=== PATIENT | female | born 1955 | race Caucasian/White ===

== ENCOUNTER 2022-03-17 10:01 | Inpatient (IN) | payer MEDICARE, OTHER ==
[~2022-03-17] VITALS: Ht 167.6 cm; Wt 62.1 kg
[~2022-03-17 10:01] MED LIST: ALDACTONE 25MG25 M1 PO; NORVASC 5MG5 MG/TAB PO; PRINIVIL40 MG PO; PROTONIX 40MG T40 MG PO; ZOFRAN ODT4 MG PO
[2022-03-17 10:59] LABS: BASO % 0.2 % (0.0-2.0); EOS # 0.1 K/mm3 (0.0-0.7); GRAN # 2.7 K/mm3 (1.4-6.5); GRAN % 62.8 % (42.2-75.2); HEMATOCRIT 39.3 % (37.0-47.0); HEMOGLOBIN 14.2 g/dl (12.5-16.0); LYMPH # 1.1 K/mm3 (1.2-3.4); LYMPH % 24.4 % (20.0-51.0); MEAN CELL VOLUME 82 fl (80.0-100.0); MEAN CORPUSCULAR HEMOGLOBIN 30 pg (27-31); MEAN CORPUSCULAR HGB CONC 36 g/dl (33.0-37.0); MEAN PLATELET VOLUME 10.3 fl (7.4-10.4); MONO # 0.4 K/mm3 (0.1-0.6); MONO % 9.4 % (1.7-9.3); PLATELET COUNT 227 K/mm3 (130-400); RED BLOOD COUNT 4.78 M/mm3 (4.10-5.30); REDCELL DISTRIBUTION WIDTH-CV 12.2 % (11.5-14.5)
[2022-03-17 11:13] LABS: ALBUMIN 4.1 gm/dL (3.4-4.8); ANION GAP 15 mmol/L (7-16); BLOOD UREA NITROGEN 7 mg/dL (10-20); CALCIUM 10.1 mg/dL (8.4-10.2); CARBON DIOXIDE 21 mmol/L (23-31); CHLORIDE 90 mmol/L (98-107); CREATININE, serum 0.81 mg/dL (0.57-1.11); GLUCOSE 84 mg/dL (70-99); PHOSPHOROUS 4.5 mg/dL (2.3-4.7); SODIUM 126 mmol/L (136-145)
[2022-03-17 11:34] LABS: TROPONIN-I < 0.010 ng/mL (0.00-0.033); TSH w REFLEX < 0.003 uIU/mL (0.350-4.940)
[2022-03-17 13:20] LABS: URIC ACID 6.7 mg/dL (2.6-6.0)
[2022-03-17 15:56] LABS: CALCIUM 9.4 mg/dL (8.4-10.2); CREATININE, serum 0.74 mg/dL (0.57-1.11)
[2022-03-17 16:00] VITALS: BP 113/65; PULSE 77
--- NOTE | 2022-03-17 16:25 | NUR ---
ADMIT FROM ER WITH C/O DIZZY THIS AM. STATES SHE USE TO HAVE HIGH BLOOD PRESSURE AND WAS OVER WEIGHT SINCE LOSING WT, HAS BEEN MONITORING BP AND NOT TAKING BP MEDS. BP 80/50 USUALLY. FELT OFF BALANCE AND CAME IN. DENIES FALLS TO HIT ANYTHING DID BUMP INTO WALL. HX AND ASSESSSMENT . WILL DO MED REC WHEN SPOUSE BRING CURRENT LITZY.
[2022-03-17] MEDS ORDERED: FLONASE NASAL S16 GM NS (17:57)
[2022-03-17] MEDS ORDERED: PROAIR HFA0.09 MG/AC IH (17:58)
[2022-03-17] MEDS ORDERED: FOSAMAX 70MG TA70 MG PO (17:59)
[2022-03-17] MEDS ORDERED: CYTOMEL 2525 MCG/TAB PO (18:00)
[2022-03-17] MEDS ORDERED: ALDACTONE 25MG25 M1 PO (18:00)
[2022-03-17] MEDS ORDERED: DESYREL DIVIDO300 MG PO (18:00)
[2022-03-17] MEDS ORDERED: SYNTHROID0.125 MG/T PO (18:01)
[2022-03-17] MEDS ORDERED: ULTRAM 50MG TAB50 MG PO (18:01)
[2022-03-17] MEDS ORDERED: NEURONTIN300 MG/CAP PO (18:02)
[2022-03-17] MEDS ORDERED: COREG12.5 MG PO (18:02)
[2022-03-17] MEDS ORDERED: PROTONIX 40MG T40 MG PO (18:02)
[2022-03-17] MEDS ORDERED: RESTORIL30 MG (18:03)
[2022-03-17] MEDS ORDERED: XYZAL5 MG PO (18:13)
--- NOTE | 2022-03-17 20:15 | NUR ---
Initial shift assessment done- denies dizziness, VSS, IV fluids of NS at 60cc/hr to L/FA, Tele on-SR, Pt understands we need a urine specimen tonight- states she will call if she needs any assistance tonight.
[2022-03-17 20:30] VITALS: BP 137/77; PULSE 80; TEMP 98.3
[2022-03-17 22:41] LABS: OSMOLALITY-URINE random 155 Osm/kg (50-1200)
[2022-03-18] VITALS: BP 111/66; PULSE 79; TEMP 98
[2022-03-18 04:37] VITALS: BP 119/47; PULSE 69; TEMP 98.1
--- NOTE | 2022-03-18 05:51 | NUR ---
Quiet night- no requests, no dizziness, VSS, B/P stable, o2 sats 98% on RA
[2022-03-18 07:04] LABS: BASO % 0.2 % (0.0-2.0); EOS # 0.1 K/mm3 (0.0-0.7); GRAN # 2.7 K/mm3 (1.4-6.5); GRAN % 59.1 % (42.2-75.2); HEMOGLOBIN 12.7 g/dl (12.5-16.0); LYMPH # 1.3 K/mm3 (1.2-3.4); LYMPH % 28.4 % (20.0-51.0); MEAN CELL VOLUME 83 fl (80.0-100.0); MEAN CORPUSCULAR HEMOGLOBIN 29 pg (27-31); MEAN CORPUSCULAR HGB CONC 35 g/dl (33.0-37.0); MEAN PLATELET VOLUME 10.5 fl (7.4-10.4); MONO # 0.4 K/mm3 (0.1-0.6); MONO % 9.1 % (1.7-9.3); PLATELET COUNT 240 K/mm3 (130-400); RED BLOOD COUNT 4.33 M/mm3 (4.10-5.30); REDCELL DISTRIBUTION WIDTH-CV 12.3 % (11.5-14.5)
[2022-03-18 07:19] LABS: HEMATOCRIT 35.9 % (37.0-47.0)
[2022-03-18 07:26] LABS: CALCIUM 9.5 mg/dL (8.4-10.2); CREATININE, serum 0.73 mg/dL (0.57-1.11); POTASSIUM 4.2 mmol/L (3.5-4.5)
--- NOTE | 2022-03-18 07:39 | NUR ---
ALERT AND OX4. DENIES SOA, CHEST PAIN OR DIZZY. STATES FEELING BETTER TODAY. NO HOME MEDS OTHER THAN GABPENTIN RESTARTED, MED LIST UP TO DATE WILL INQUIRE WITH DOCTORS. NEURO INTACT. UP INDENPENT IN ROOM. RA. CALL LIGHT WITH REACH. NEEDS MET.
[2022-03-18 07:40] LABS: TSH w REFLEX 0.003 uIU/mL (0.350-4.940)
[2022-03-18 07:59] VITALS: BP 125/66; PULSE 72; TEMP 97.8
--- NOTE | 2022-03-18 08:53 | NUR ---
REPORT OFF TO SARA COOPER.
[2022-03-18] MEDS ORDERED: SYNTHROID0.1 MG/TAB PO (09:42)
[2022-03-18 11:01] VITALS: BP 123/69; PULSE 75; TEMP 98
--- NOTE | 2022-03-18 11:27 | NUR ---
Discharge paperwork reviewed with the patient and . Patient removed her own IV. Patient ambulated independently with her to the patient entrance. No further needs expressed.
--- NOTE | 2022-03-18 13:17 | NUR ---
Headlight Assembler met with patient to discuss discharge planning. Patient lives in [place] with her , Richard Bruno" (ph#[phone]) [address] sees Dr. Padilla in [place] for primary care. Patient obtains medications from [facility] and does not use any DME. Patient is independent with ADLS and stated she is looking forward to going home today. Patient is independent with ADLS. Patient does not have Advance Directives but is interested in DPOA-HC. SW provided. Discharge Plan: Home
--- NOTE | 2022-03-18 15:06 | NUR ---
Kaylin: Restoration Situation: Channel Director stopped by room on rounds Background: PT was content and ready to be discharged Assessment: Pt appreciated the visit Recommendation: Channel Director will follow up as needed
== END 2022-03-18 11:27 | disposition home or self-care (01) | DRG 315 ==
LOC: COL.ER 10:01 → MEDICAL 13:44
PROVIDERS: Emergency Medicine; Physician Assistant; ADMIT Student in an Organized Health Care Education/Training Program
DX: I95.9 Hypotension, unspecified (principal); E87.1 Hypo-osmolality and hyponatremia; E11.9 Type 2 diabetes mellitus without complications; G47.30 Sleep apnea, unspecified; E03.9 Hypothyroidism, unspecified; I10 Essential (primary) hypertension; G43.909 Migraine, unspecified, not intractable, without status migrainosus; E05.90 Thyrotoxicosis, unspecified without thyrotoxic crisis or storm; K21.9 Gastro-esophageal reflux disease without esophagitis; G47.00 Insomnia, unspecified; E87.8 Other disorders of electrolyte and fluid balance, not elsewhere classified; Z79.84 Long term (current) use of oral hypoglycemic drugs; Z88.5 Allergy status to narcotic agent; Z90.710 Acquired absence of both cervix and uterus; Z90.49 Acquired absence of other specified parts of digestive tract
CPT/HCPCS: J7030

== ENCOUNTER 2024-05-29 09:33 | Inpatient (IN) | payer MEDICARE, OTHER ==
[2024-05-29] VITALS (172 sets, daily range): BP systolic 112–154; BP diastolic 54–80; PULSE 87–105; TEMP 97.9–98.9; O2SAT 72–100
[~2024-05-29] VITALS: Ht 162.6 cm; Wt 62.7 kg
[~2024-05-29 09:33] MED LIST changes: +COREG12.5 MG PO; +CYTOMEL 2525 MCG/TAB PO; +DESYREL 100MG100 MG PO; +FLONASE NASAL S16 GM NS; +FOSAMAX 70MG TA70 MG PO; +NEURONTIN300 MG/CAP PO; +PROAIR HFA0.09 MG/AC IH; +RESTORIL30 MG PO; +SYNTHROID0.1 MG/TAB PO; +SYNTHROID0.125 MG/T PO; +ULTRAM 50MG TAB50 MG PO; +XYZAL5 MG PO
[2024-05-29] MEDS ORDERED: NS 1,000 ML IV ONE (10:30)
[2024-05-29] MEDS ORDERED: Ondansetron 4 MG/2 ML VIAL IV ONE (10:30)
[2024-05-29 11:19] LABS: ALBUMIN 2.9 g/dL (3.4-4.8); BILIRUBIN,TOTAL 0.4 mg/dL (0.2-1.2); CREATININE, serum 0.62 mg/dL (0.57-1.11); POTASSIUM 3.2 mEq/L (3.5-4.5); TOTAL PROTEIN 4.8 g/dl (6.2-8.1)
[2024-05-29] MEDS ORDERED: Polyethylene Glycol 3350 17 GM PDS PO PRN (11:45)
[2024-05-29] MEDS ORDERED: Ondansetron 4 MG/2 ML VIAL IV PRN (11:45)
[2024-05-29] MEDS ORDERED: Docusate Sodium 100 MG CAP PO PRN (11:45)
[2024-05-29] MEDS ORDERED: NS 1,000 ML IV SCH (11:45)
[2024-05-29] MEDS ORDERED: Acetaminophen 325 MG TAB PO PRN (11:45)
[2024-05-29 11:59] LABS: GRAN # 5.4 K/mm3 (1.4-6.5); GRAN % 79.8 % (42.2-75.2); LYMPH # 1.1 K/mm3 (1.2-3.4); LYMPH % 15.8 % (20.0-51.0); MEAN CELL VOLUME 82 fl (80.0-100.0); MEAN CORPUSCULAR HGB CONC 38 g/dl (33.0-37.0); MONO # 0.3 K/mm3 (0.1-0.6); MONO % 3.7 % (1.7-9.3); PLATELET COUNT 195 K/mm3 (130-400); RED BLOOD COUNT 2.25 M/mm3 (4.10-5.30); REDCELL DISTRIBUTION WIDTH-CV 11.9 % (11.5-14.5)
[2024-05-29 12:04] LABS: HEMATOCRIT 18.4 % (37.0-47.0); HEMOGLOBIN 6.9 g/dl (12.5-16.0); MEAN CORPUSCULAR HEMOGLOBIN 31 pg (27-31)
[2024-05-29] MEDS ORDERED: ULTRAM 50MG TAB50 MG PO (12:25)
[2024-05-29] MEDS ORDERED: REQUIP 0.5MG0.5 MG PO (12:25)
[2024-05-29] MEDS ORDERED: Potassium Bicarbonate/Citrate 20 MEQ Effervescent TAB PO SCH (13:00)
[2024-05-29] MEDS ORDERED: *Potassium Replacement Protocol MC SCH (13:00)
[2024-05-29] MEDS ORDERED: Temazepam 15 MG CAP PO PRN (13:00)
[2024-05-29] MEDS ORDERED: Albuterol 0.083% Neb Soln 2.5 MG/3 ML UD IH PRN (13:00)
[2024-05-29 13:49] LABS: COLLECTION METHOD CLEAN CATCH
[2024-05-29 13:53] LABS: URINE APPEARANCE CLEAR (CLEAR/HAZY); URINE BLOOD NEGATIVE (NEGATIVE); URINE COLOR YELLOW (YELLOW); URINE GLUCOSE NEGATIVE (NEGATIVE); URINE KETONE 1+ (NEGATIVE); URINE NITRATE NEGATIVE (NEGATIVE); URINE PROTEIN(semi-quant) NEGATIVE (NEGATIVE); URINE UROBILINOGEN 0.2 E.U/dL (0.2-1.0)
[2024-05-29 14:06] LABS: MAGNESIUM 1.5 mg/dL (1.6-2.6); PHOSPHOROUS 2.4 mg/dL (2.3-4.7)
[2024-05-29] MEDS ORDERED: Gabapentin 300 MG CAP PO SCH (14:30)
[2024-05-29] MEDS ORDERED: rOPINIRole 0.5 MG TAB PO SCH (15:19)
[2024-05-29 15:20] LABS: CALCIUM 7.3 mg/dL (8.4-10.2); CREATININE, serum 0.57 mg/dL (0.57-1.11)
[2024-05-29 15:29] LABS: HEMOGLOBIN 5.4 g/dl (12.5-16.0)
[2024-05-29 15:31] LABS: HEMATOCRIT 14.2 % (37.0-47.0)
[2024-05-29 17:54] LABS: CALCIUM 7.3 mg/dL (8.4-10.2); CREATININE, serum 0.6 mg/dL (0.57-1.11); POTASSIUM 4.2 mEq/L (3.5-4.5)
--- NOTE | 2024-05-29 18:57 | NUR ---
1245 PT ADMITTED TO BED 3 FROM ED. PT ABLE TO STAND AND PIVOT TRANSFER FROM ER COT TO BED. VSS UPON ARRIVAL, PT ON ROOM AIR. FLUIDS STARTED ORDERED TO R WRIST PERIPHERAL IV. PT ALERT AND ORIENTED, PT DENIES PAIN, N/V. PT UNABLE TO VOID, WAGNER INSERTED PER STERILE PROCEDURE ORDERED. PT TOLERATED WELL, CLEAR YELLOW URINE RETURNED, UA SENT TO LAB. PT INSTRUCTED TO USE CALL LIGHT FOR NEEDS AND TO NOT ATTEMPT TO GET OUT OF BED ALONE, BED ALARM IN PLACE FOR PT SAFETY.
[2024-05-29 19:19] LABS: HEMATOCRIT 19.8 % (37.0-47.0); HEMOGLOBIN 7.4 g/dl (12.5-16.0)
--- NOTE | 2024-05-29 19:22 | NUR ---
PATIENT LAYING IN BED, ALERT AND ORIENTED. PICC TO LEFT UPPER ARM, PERIPHERAL IV TO RIGHT WRIST. WAGNER CATHETER IN PLACE AND DRAINING PROPERLY. NO ACUTE EVENTS.
[2024-05-29 21:28] LABS: CALCIUM 7.5 mg/dL (8.4-10.2); CREATININE, serum 0.55 mg/dL (0.57-1.11); POTASSIUM 3.9 mEq/L (3.5-4.5)
[2024-05-30] VITALS (90 sets, daily range): BP systolic 94–129; BP diastolic 59–90; PULSE 69–93; TEMP 97.9–98.3; O2SAT 91–100
[2024-05-30 01:34] LABS: CALCIUM 7.3 mg/dL (8.4-10.2); CREATININE, serum 0.5 mg/dL (0.57-1.11); POTASSIUM 3.5 mEq/L (3.5-4.5)
[2024-05-30 05:29] LABS: EOS % 0.3 % (0.0-4.0); GRAN # 2.3 K/mm3 (1.4-6.5); GRAN % 63.9 % (42.2-75.2); LYMPH % 28.2 % (20.0-51.0); MEAN CELL VOLUME 86 fl (80.0-100.0); MEAN CORPUSCULAR HGB CONC 37 g/dl (33.0-37.0); MEAN PLATELET VOLUME 10.7 fl (7.4-10.4); MONO # 0.3 K/mm3 (0.1-0.6); PLATELET COUNT 153 K/mm3 (130-400)
[2024-05-30 05:35] LABS: MEAN CORPUSCULAR HEMOGLOBIN 32 pg (27-31)
[2024-05-30 05:37] LABS: HEMATOCRIT 17.1 % (37.0-47.0); HEMOGLOBIN 6.4 g/dl (12.5-16.0)
[2024-05-30 05:46] LABS: CALCIUM 7.4 mg/dL (8.4-10.2); CREATININE, serum 0.54 mg/dL (0.57-1.11); POTASSIUM 3.5 mEq/L (3.5-4.5)
[2024-05-30 06:08] LABS: THYROID STIMULATING HORMONE 4.808 uIU/mL (0.350-4.940)
[2024-05-30] MEDS ORDERED: Potassium Chloride 100 ML IV SCH (06:15)
--- NOTE | 2024-05-30 07:00 | NUR ---
Report received from SARA Foote. Pt had no events overnight. HGB 6.4 this AM and 1 unit of blood ordered; not yet ready. PICC to left upper arm with NS and potassium infusing. Pt offers no complaints at this time. Call light in reach.
[2024-05-30] MEDS ORDERED: Magnesium Sulfate 2 GM/50 ML IV SOLN IV SCH (09:00)
[2024-05-30] MEDS ORDERED: Pantoprazole 40 MG in NS 10 ML IV SCH (09:00)
[2024-05-30] MEDS ORDERED: Cetirizine 10 MG TAB PO SCH (09:00)
[2024-05-30] MEDS ORDERED: Levocetirizine 5 MG **** subs to Cetirizine 10 MG PO SCH (09:00)
[2024-05-30 09:36] LABS: CALCIUM 7.4 mg/dL (8.4-10.2); POTASSIUM 4.6 mEq/L (3.5-4.5)
[2024-05-30 10:02] LABS: CREATININE, serum 0.53 mg/dL (0.57-1.11)
--- NOTE | 2024-05-30 11:01 | NUR ---
footwear factory worker notes pt is in isolation for COVID-19. SW attempted to call her room with no response. SW called pt's , Richard [phone] to discuss discharge planning. He reports they live together in [place]. He sees Dr. Padilla out of [place] for PCP needs. Pt obtains medications from [facility] with no difficulties. verified insurance as Medicare A/B and for Life. Pt is independent with ADLS and uses a CPAP and cane for DME. states pt does not have a DPOA-HC. SW discussed PT/OT will work with her and make reccomendations, when able if she needs Home Health or rehab. He verbalized understanding and reports two of their daughter's live nearby and one is a [employer] ATTENDANT who can assist. PT/OT Pending Discharge Plan: home likely
[2024-05-30 13:50] LABS: CALCIUM 7.4 mg/dL (8.4-10.2); CREATININE, serum 0.53 mg/dL (0.57-1.11); POTASSIUM 4.6 mEq/L (3.5-4.5)
[2024-05-30 14:12] LABS: HEMATOCRIT 22.1 % (37.0-47.0)
[2024-05-30] MEDS ORDERED: DESMOPRESSIN IV ONE (14:45)
[2024-05-30] MEDS ORDERED: SODIUM CHLORIDE IV ONE (14:45)
[2024-05-30 17:23] LABS: ANION GAP 6 mmol/L (7-16); BLOOD UREA NITROGEN < 5 mg/dL (10-20); CALCIUM 6.7 mg/dL (8.4-10.2); CHLORIDE 102 mEq/L (98-107); CREATININE, serum 0.56 mg/dL (0.57-1.11); GLUCOSE 187 mg/dL (70-99); POTASSIUM 3.6 mEq/L (3.5-4.5); SODIUM 125 mEq/L (136-145)
--- NOTE | 2024-05-30 19:49 | NUR ---
Received report from SARA White. Pt was alert and sitting up in recliner with at bedside. Vitals are stable at this time. Chu in place with no kinks in tubing. IVF's running at this time. Pt is now is bed with bed in low position and call light within reach. Will continue with pt care.
[2024-05-30 21:50] LABS: CALCIUM 7.7 mg/dL (8.4-10.2); CREATININE, serum 0.53 mg/dL (0.57-1.11); POTASSIUM 3.5 mEq/L (3.5-4.5)
[2024-05-31] VITALS (20 sets, daily range): BP systolic 106–149; BP diastolic 57–95; PULSE 85–92; TEMP 97.8–98.3; O2SAT 96–100
[2024-05-31 01:26] LABS: CALCIUM 7.6 mg/dL (8.4-10.2); CREATININE, serum 0.52 mg/dL (0.57-1.11); POTASSIUM 3.6 mEq/L (3.5-4.5)
[2024-05-31 05:11] LABS: EOS % 0.2 % (0.0-4.0); GRAN # 2.9 K/mm3 (1.4-6.5); GRAN % 62.2 % (42.2-75.2); LYMPH # 1.3 K/mm3 (1.2-3.4); LYMPH % 28.9 % (20.0-51.0); MEAN CELL VOLUME 87 fl (80.0-100.0); MEAN CORPUSCULAR HGB CONC 36 g/dl (33.0-37.0); MEAN PLATELET VOLUME 10.4 fl (7.4-10.4); MONO # 0.4 K/mm3 (0.1-0.6); PLATELET COUNT 151 K/mm3 (130-400); REDCELL DISTRIBUTION WIDTH-CV 14.4 % (11.5-14.5)
[2024-05-31 05:16] LABS: HEMOGLOBIN 7.2 g/dl (12.5-16.0); MEAN CORPUSCULAR HEMOGLOBIN 31 pg (27-31)
[2024-05-31 05:28] LABS: CALCIUM 7.5 mg/dL (8.4-10.2); CREATININE, serum 0.54 mg/dL (0.57-1.11); POTASSIUM 3.7 mEq/L (3.5-4.5)
[2024-05-31] MEDS ORDERED: Potassium Chloride 100 ML IV SCH (05:45)
--- NOTE | 2024-05-31 06:14 | NUR ---
Pt had an uneventful night. Vitals were stable throughout the night. Pt on IVF's and is currently getting potassium replaced per protocol. Chu in place with no kinks in tubing. Pt had adequate urine output. Pt is currently in recliner with the call light within reach. Will give report to day shift nurse.
--- NOTE | 2024-05-31 09:22 | NUR ---
Patient was in recliner resting, VSS, on RA, alert and oriented to situation/person/place. She has had exaggerated urine output. Since 0500 to 0800, she had 1000 ml out of clear yellow urine. Afebrile, able to ambulate to bed from chair without assistance. No signs of IV infiltration, NS infusing and young draining without complications. Will continue to monitor for significant changes. Recheck of Hemogloblin at noon, then we will make a decision on whether to infuse additional unit of PRBC.
[2024-05-31 09:31] LABS: ANION GAP 6 mmol/L (7-16); CALCIUM 7.5 mg/dL (8.4-10.2); CHLORIDE 98 mEq/L (98-107); CREATININE, serum 0.55 mg/dL (0.57-1.11); GLUCOSE 115 mg/dL (70-99); POTASSIUM 4.1 mEq/L (3.5-4.5); SODIUM 123 mEq/L (136-145)
[2024-05-31 09:34] LABS: BLOOD UREA NITROGEN < 5 mg/dL (10-20)
[2024-05-31] MEDS ORDERED: DESMOPRESSIN 0.01% NS SCH (11:02)
[2024-05-31 12:22] LABS: HEMATOCRIT 22.9 % (37.0-47.0); HEMOGLOBIN 8.1 g/dl (12.5-16.0)
--- NOTE | 2024-05-31 13:34 | NUR ---
composite worker attended interdisciplinary clinical rounding with Dr. Traore. Patient may be able to return home tomorrow. SW expressed PT and OT were recommending home health services. Due to patient being in COVID isolation, Dr. Traore provided the Medicare.gov list of options for home health and expressed the social professionals would be calling her to discuss this. SW attempted to contact patient's phone but it was not going through. SW met with patient in room and explained home health services and explained she would need to choose an agency and social professionals would send the referral. SW left her phone number with patient to follow up with on choice of home health agency. Discharge plan: Home with Home Health - pending patient's choice of home health agency
--- NOTE | 2024-05-31 16:37 | NUR ---
road worker called patient to follow up on options for home health. Patient expressed she reviewed the Medicare.gov and decided she was going to go home and use family support. Patient declined home health services. Discharge plan: Home
--- NOTE | 2024-05-31 19:36 | NUR ---
Received report from SARA Tejeda. Vitals are stable at this time. Pt is alert and sitting up in the recliner with the call light within reach. Chu is in place with no kinks in tubing. IVF's running at this time. Will continue with pt care.
[2024-06-01] VITALS (34 sets, daily range): BP systolic 109–159; BP diastolic 79–99; PULSE 79–96; TEMP 97.8–98.3; O2SAT 85–100
[2024-06-01 05:24] LABS: BASO % 0.2 % (0.0-2.0); EOS # 0.1 K/mm3 (0.0-0.7); EOS % 1.1 % (0.0-4.0); GRAN # 4.6 K/mm3 (1.4-6.5); GRAN % 68.5 % (42.2-75.2); LYMPH # 1.4 K/mm3 (1.2-3.4); LYMPH % 21.5 % (20.0-51.0); MEAN CELL VOLUME 88 fl (80.0-100.0); MEAN CORPUSCULAR HGB CONC 36 g/dl (33.0-37.0); MEAN PLATELET VOLUME 10.3 fl (7.4-10.4); MONO # 0.5 K/mm3 (0.1-0.6); MONO % 8.1 % (1.7-9.3); PLATELET COUNT 206 K/mm3 (130-400); RED BLOOD COUNT 2.67 M/mm3 (4.10-5.30); REDCELL DISTRIBUTION WIDTH-CV 14.4 % (11.5-14.5)
[2024-06-01 05:29] LABS: HEMATOCRIT 23.4 % (37.0-47.0); HEMOGLOBIN 8.5 g/dl (12.5-16.0); MEAN CORPUSCULAR HEMOGLOBIN 32 pg (27-31)
[2024-06-01 05:45] LABS: CREATININE, serum 0.52 mg/dL (0.57-1.11); POTASSIUM 3.3 mEq/L (3.5-4.5)
--- NOTE | 2024-06-01 06:17 | NUR ---
Pt had an uneventful night. Vitals were stable throughout the night. IVF's running at this time. Chu in place with no kinks in tubing. Pt had 4L of urine output and hospitalist was notified and will pass onto day shift nurse. Pt's Na+ and Cl was low in lab and did a redrawal to verifiy and check to make sure if it is accurate. Pt denied pain throughout the night. Pt is currently resting in bed with bed in low position and call light within reach. Will give report to day shift nurse.
[2024-06-01 07:05] LABS: CALCIUM 7.9 mg/dL (8.4-10.2); CREATININE, serum 0.5 mg/dL (0.57-1.11); POTASSIUM 3.3 mEq/L (3.5-4.5)
--- NOTE | 2024-06-01 07:44 | NUR ---
CRITICALS THIS MORNING WITH SODIUM OF 114, DID A REDRAW BMP TO VERIFY FOR THE DRAMATIC DROP AND IT IS 114 FROM THE REDRAW. CHLORIDE IS ALSO AT A CRITICAL LEVEL OF 83. NOTIFIED PHYSICIAN OF CHANGES. WILL GIVE ADDITIONAL DOSE OF DESMOPRESSION. MONITORING FOR SEIZURES OR SIGNIFICANT CHANGES.
[2024-06-01] MEDS ORDERED: DESMOPRESSIN IV ONE (07:45)
[2024-06-01] MEDS ORDERED: Potassium Chloride 100 ML IV SCH ×2 (07:45→19:15)
[2024-06-01] MEDS ORDERED: SODIUM CHLORIDE IV ONE (07:45)
[2024-06-01 11:38] LABS: ANION GAP 9 mmol/L (7-16); CALCIUM 7.7 mg/dL (8.4-10.2); CREATININE, serum 0.54 mg/dL (0.57-1.11); GLUCOSE 121 mg/dL (70-99); POTASSIUM 4.6 mEq/L (3.5-4.5)
[2024-06-01 11:50] LABS: BLOOD UREA NITROGEN < 5 mg/dL (10-20)
[2024-06-01 11:51] LABS: SODIUM 111 mEq/L (136-145)
[2024-06-01 11:52] LABS: CHLORIDE 84 mEq/L (98-107)
[2024-06-01] MEDS ORDERED: Sodium Chloride 3% 500 ML IV SCH ×2 (12:30→13:45)
[2024-06-01] MEDS ORDERED: hydrOXYzine HCl 25 MG TAB PO SCH (13:00)
[2024-06-01] MEDS ORDERED: diazePAM 2 MG TAB PO ONE (14:00)
[2024-06-01 16:27] LABS: ANION GAP 9 mmol/L (7-16); CALCIUM 8.1 mg/dL (8.4-10.2); GLUCOSE 104 mg/dL (70-99); POTASSIUM 3.5 mEq/L (3.5-4.5)
[2024-06-01 16:29] LABS: BLOOD UREA NITROGEN < 5 mg/dL (10-20); SODIUM 110 mEq/L (136-145)
[2024-06-01 16:30] LABS: CHLORIDE 80 mEq/L (98-107)
--- NOTE | 2024-06-01 17:19 | NUR ---
Requested with Dr. Evans, that we a redraw for sodium since there has been a dramatic drop continually. The redraw to be collected from a peripheral vein, not the PICC. I am unsure what would be causing a difference between sticking peripheral and using the PICC, but it is to rule out any discrepicies. Patient continues to be scared and anxious about why her sodium is dropping, what that may mean for her, and what would cause these changes. Educated patient about the medications that we are trying to correct her severe hyponatremia. 3% sodium chloride was started at 30 ml/hr with an increase in BMP to Q2hr and sodium chloride tablets 1000 mg TID. Will continue to look for trends and notify physician as needed.
[2024-06-01 17:30] LABS: TRICYCLIC ANTIDEPRESS URINE NEGATIVE (NEGATIVE)
[2024-06-01 17:34] LABS: ANION GAP 9 mmol/L (7-16); CALCIUM 8.6 mg/dL (8.4-10.2); CREATININE, serum 0.51 mg/dL (0.57-1.11); GLUCOSE 100 mg/dL (70-99); POTASSIUM 3.5 mEq/L (3.5-4.5)
[2024-06-01 17:35] LABS: BLOOD UREA NITROGEN < 5 mg/dL (10-20); CHLORIDE 80 mEq/L (98-107); SODIUM 110 mEq/L (136-145)
[2024-06-01 18:42] LABS: CALCIUM 8.3 mg/dL (8.4-10.2); CREATININE, serum 0.49 mg/dL (0.57-1.11); GLUCOSE 92 mg/dL (70-99)
[2024-06-01 18:50] LABS: ANION GAP 11 mmol/L (7-16); POTASSIUM 3.5 mEq/L (3.5-4.5)
[2024-06-01 18:51] LABS: BLOOD UREA NITROGEN < 5 mg/dL (10-20)
[2024-06-01 18:52] LABS: CHLORIDE 80 mEq/L (98-107); SODIUM 111 mEq/L (136-145)
--- NOTE | 2024-06-01 19:09 | NUR ---
Received report from SARA Tejeda. Vitals are stable at this time. 3% sodium chloride is running at this time. Pt's is at bedside at this time. Pt is currently sitting up in the recliner and is alert. Call light is within reach. Chu is in place with no kinks in tubing.
[2024-06-01] MEDS ORDERED: Sodium Chloride 3% 100 ML IV SCH (19:45)
[2024-06-01 20:21] LABS: ANION GAP 11 mmol/L (7-16); CREATININE, serum 0.55 mg/dL (0.57-1.11); GLUCOSE 182 mg/dL (70-99); POTASSIUM 3.5 mEq/L (3.5-4.5)
[2024-06-01 20:36] LABS: BLOOD UREA NITROGEN < 5 mg/dL (10-20)
[2024-06-01 20:37] LABS: CHLORIDE 82 mEq/L (98-107); SODIUM 111 mEq/L (136-145)
[2024-06-01] MEDS ORDERED: traZODone 100 MG TAB PO SCH (21:00)
[2024-06-01 22:57] LABS: CALCIUM 7.9 mg/dL (8.4-10.2); CREATININE, serum 0.5 mg/dL (0.57-1.11); POTASSIUM 4.7 mEq/L (3.5-4.5)
[2024-06-02] VITALS (222 sets, daily range): BP systolic 99–133; BP diastolic 66–85; PULSE 72–89; TEMP 97.4–98.3; O2SAT 74–100
[2024-06-02 00:44] LABS: CALCIUM 7.6 mg/dL (8.4-10.2); CREATININE, serum 0.47 mg/dL (0.57-1.11); POTASSIUM 4.1 mEq/L (3.5-4.5)
[2024-06-02 02:28] LABS: CALCIUM 7.8 mg/dL (8.4-10.2); CREATININE, serum 0.47 mg/dL (0.57-1.11); POTASSIUM 3.9 mEq/L (3.5-4.5)
[2024-06-02 04:42] LABS: CALCIUM 7.8 mg/dL (8.4-10.2); CREATININE, serum 0.5 mg/dL (0.57-1.11); POTASSIUM 3.7 mEq/L (3.5-4.5)
[2024-06-02] MEDS ORDERED: Potassium Chloride 100 ML IV SCH (05:15)
--- NOTE | 2024-06-02 06:25 | NUR ---
Pt had an uneventful night. Vitals have been stable throughout the night. Pt denies having pain throughout the night. Pt on 3% sodium chloride drip at this time and replacing potassium per protocol. Chu in place with no kinks in tubing. Pt seemed to sleep most of the night. Pt is currently resting in bed with bed in low position and call light within reach. Will give report to day shift nurse.
[2024-06-02 06:30] LABS: ANION GAP 7 mmol/L (7-16); BLOOD UREA NITROGEN < 5 mg/dL (10-20); CALCIUM 7.8 mg/dL (8.4-10.2); CHLORIDE 90 mEq/L (98-107); CREATININE, serum 0.48 mg/dL (0.57-1.11); GLUCOSE 82 mg/dL (70-99); POTASSIUM 3.6 mEq/L (3.5-4.5)
[2024-06-02 06:31] LABS: SODIUM 117 mEq/L (136-145)
--- NOTE | 2024-06-02 06:36 | NUR ---
Will pass on critical Na+ to day shift nurse.
[2024-06-02 08:58] LABS: ANION GAP 5 mmol/L (7-16); CALCIUM 7.9 mg/dL (8.4-10.2); CHLORIDE 93 mEq/L (98-107); CREATININE, serum 0.53 mg/dL (0.57-1.11); GLUCOSE 84 mg/dL (70-99); POTASSIUM 5.1 mEq/L (3.5-4.5)
[2024-06-02 08:59] LABS: BLOOD UREA NITROGEN < 5 mg/dL (10-20)
[2024-06-02 09:00] LABS: SODIUM 118 mEq/L (136-145)
[2024-06-02 10:26] LABS: ANION GAP 6 mmol/L (7-16); CALCIUM 7.7 mg/dL (8.4-10.2); CHLORIDE 93 mEq/L (98-107); CREATININE, serum 0.53 mg/dL (0.57-1.11); GLUCOSE 90 mg/dL (70-99); POTASSIUM 4.4 mEq/L (3.5-4.5)
[2024-06-02 10:38] LABS: BLOOD UREA NITROGEN < 5 mg/dL (10-20)
[2024-06-02 10:39] LABS: SODIUM 117 mEq/L (136-145)
[2024-06-02 12:28] LABS: ANION GAP 6 mmol/L (7-16); CALCIUM 7.7 mg/dL (8.4-10.2); CHLORIDE 92 mEq/L (98-107); CREATININE, serum 0.52 mg/dL (0.57-1.11); GLUCOSE 96 mg/dL (70-99); POTASSIUM 4.1 mEq/L (3.5-4.5)
[2024-06-02 12:37] LABS: BLOOD UREA NITROGEN < 5 mg/dL (10-20)
[2024-06-02 12:38] LABS: SODIUM 117 mEq/L (136-145)
[2024-06-02 14:24] LABS: ANION GAP 8 mmol/L (7-16); BLOOD UREA NITROGEN < 5 mg/dL (10-20); CALCIUM 7.8 mg/dL (8.4-10.2); CHLORIDE 94 mEq/L (98-107); CREATININE, serum 0.52 mg/dL (0.57-1.11); GLUCOSE 89 mg/dL (70-99); POTASSIUM 4.1 mEq/L (3.5-4.5)
[2024-06-02 14:25] LABS: SODIUM 119 mEq/L (136-145)
[2024-06-02 16:44] LABS: ANION GAP 7 mmol/L (7-16); CALCIUM 7.6 mg/dL (8.4-10.2); CHLORIDE 95 mEq/L (98-107); GLUCOSE 83 mg/dL (70-99); POTASSIUM 4.6 mEq/L (3.5-4.5); SODIUM 121 mEq/L (136-145)
[2024-06-02 16:46] LABS: BLOOD UREA NITROGEN < 5 mg/dL (10-20)
[2024-06-02 18:45] LABS: CALCIUM 7.7 mg/dL (8.4-10.2); CREATININE, serum 0.51 mg/dL (0.57-1.11); POTASSIUM 4.2 mEq/L (3.5-4.5)
--- NOTE | 2024-06-02 19:29 | NUR ---
PATIENT LAYING IN BED, ALERT AND ORIENTED. AT BEDSIDE. PICC LINE TO LEFT UPPER ARM. WAGNER CATHETER IN PLACE AND DRAINING WELL. CALL LIGHT WITHIN REACH. NO ACUTE EVENTS.
[2024-06-02 21:21] LABS: CALCIUM 7.6 mg/dL (8.4-10.2); CREATININE, serum 0.54 mg/dL (0.57-1.11); POTASSIUM 3.7 mEq/L (3.5-4.5)
[2024-06-02 23:20] LABS: CALCIUM 7.7 mg/dL (8.4-10.2); CREATININE, serum 0.53 mg/dL (0.57-1.11)
[2024-06-03] VITALS (21 sets, daily range): BP systolic 105–126; BP diastolic 53–76; PULSE 64–93; TEMP 97.6–98.1; O2SAT 93–100
[2024-06-03 03:08] LABS: CALCIUM 7.8 mg/dL (8.4-10.2); CREATININE, serum 0.54 mg/dL (0.57-1.11); POTASSIUM 3.7 mEq/L (3.5-4.5)
[2024-06-03 03:09] LABS: CALCIUM 7.6 mg/dL (8.4-10.2); CREATININE, serum 0.51 mg/dL (0.57-1.11); POTASSIUM 3.9 mEq/L (3.5-4.5)
[2024-06-03 05:13] LABS: EOS # 0.1 K/mm3 (0.0-0.7); EOS % 1.2 % (0.0-4.0); GRAN # 3.5 K/mm3 (1.4-6.5); GRAN % 71.9 % (42.2-75.2); LYMPH # 0.8 K/mm3 (1.2-3.4); LYMPH % 16.6 % (20.0-51.0); MEAN CELL VOLUME 90 fl (80.0-100.0); MEAN CORPUSCULAR HGB CONC 35 g/dl (33.0-37.0); MEAN PLATELET VOLUME 10.3 fl (7.4-10.4); MONO # 0.5 K/mm3 (0.1-0.6); MONO % 9.5 % (1.7-9.3); PLATELET COUNT 201 K/mm3 (130-400); RED BLOOD COUNT 2.29 M/mm3 (4.10-5.30); REDCELL DISTRIBUTION WIDTH-CV 14.9 % (11.5-14.5)
[2024-06-03 05:23] LABS: HEMATOCRIT 20.5 % (37.0-47.0); HEMOGLOBIN 7.2 g/dl (12.5-16.0); MEAN CORPUSCULAR HEMOGLOBIN 31 pg (27-31)
[2024-06-03 05:36] LABS: CALCIUM 7.8 mg/dL (8.4-10.2); CREATININE, serum 0.52 mg/dL (0.57-1.11)
[2024-06-03 07:21] LABS: CALCIUM 7.8 mg/dL (8.4-10.2); CREATININE, serum 0.53 mg/dL (0.57-1.11); POTASSIUM 4.1 mEq/L (3.5-4.5)
[2024-06-03 08:21] LABS: CALCIUM 7.7 mg/dL (8.4-10.2); CREATININE, serum 0.53 mg/dL (0.57-1.11); POTASSIUM 4.2 mEq/L (3.5-4.5)
[2024-06-03 11:10] LABS: ANION GAP 7 mmol/L (7-16); CALCIUM 7.8 mg/dL (8.4-10.2); CHLORIDE 101 mEq/L (98-107); CREATININE, serum 0.55 mg/dL (0.57-1.11); GLUCOSE 110 mg/dL (70-99); POTASSIUM 3.9 mEq/L (3.5-4.5); SODIUM 127 mEq/L (136-145)
--- NOTE | 2024-06-03 11:14 | NUR ---
PATIENT AWAKE AND ALERT IN BED, EXPRESSES CONCERN ABOUT HER SODIUM LEVELS. THIS NURSE TOLD HER I WOULD KEEP HER UPDATED ON THE Q2 BMPS. PATIENT WAS ALSO CONCERNED ABOUT THE AMOUNT OF BLOOD WE WERE WASTING DURING THE BMPS, EXPLAINED IT WAS NECESSARY D/T POSSIBLE DILUTION ISSUES. SHE UNDERSTOOD AND WAS SATISFIED WITH THIS ANSWER. ASSISTED PATIENT IN ORDERING BREAKFAST. PATIENT HAS BED IN LOW POSITION, CALL LIGHT IN REACH, POSSESSIONS NEAR BY, CONTACT PLUS PRECATIONS STILL BEING FOLLOWED
[2024-06-03 11:18] LABS: BLOOD UREA NITROGEN < 5 mg/dL (10-20)
--- NOTE | 2024-06-03 12:38 | NUR ---
vegetable harvest worker spoke with Carolyn FORBES, and explained patient declined home health. Carolyn expressed patient has improved and at this time would be okay to return home with family support once medically stable for discharge. MARILYN will continue to follow. MARILYN notified Dr. Traore during interdisciplinary clinical rounding that patient declined home health services and would return home with family support once stable.
[2024-06-03 13:10] LABS: CALCIUM 7.9 mg/dL (8.4-10.2); CREATININE, serum 0.55 mg/dL (0.57-1.11); POTASSIUM 3.8 mEq/L (3.5-4.5)
--- NOTE | 2024-06-03 14:35 | NUR ---
hair worker attended multidisciplinary meeting to discuss discharge plan. Patient is to return home once medically stable. Everyone is in agreement with this plan at this time. Discharge plan: Home
[2024-06-03 14:55] LABS: CALCIUM 7.5 mg/dL (8.4-10.2); CREATININE, serum 0.54 mg/dL (0.57-1.11); POTASSIUM 3.8 mEq/L (3.5-4.5)
[2024-06-03 15:40] LABS: CALCIUM 7.8 mg/dL (8.4-10.2); CREATININE, serum 0.57 mg/dL (0.57-1.11)
[2024-06-03] MEDS ORDERED: DULoxetine 20 MG CAP PO ONE (16:45)
--- NOTE | 2024-06-03 18:08 | NUR ---
PER DR. SOTO. DC 3% HYPERTONIC SALINE, SODIUM TABLETS, Q2 BMPS, AND WAGNER CATHETER. RECHECK BMP AT 5AM.
--- NOTE | 2024-06-03 18:31 | NUR ---
AFTER NOT HAVING A BOWEL MOVEMENT SINCE May, PATIENT HAS LARGE BOWEL MOVEMENT, WELL A LARGE FIRST VOID AFTER WAGNER REMOVAL
--- NOTE | 2024-06-03 19:26 | NUR ---
Received report from Casandra Dhaliwal RN. Vitals are stable at this time. Pt is alert and sitting up in bed. Bed is in low position, bed alarms are on and call light is within reach. No drips or fluids are running at this time. Will continue with pt care.
[2024-06-04] VITALS: BP 127/70; PULSE 85; TEMP 98.1
[2024-06-04 04:00] VITALS: BP 103/62; PULSE 77; TEMP 98
[2024-06-04 05:34] LABS: EOS # 0.1 K/mm3 (0.0-0.7); EOS % 1.6 % (0.0-4.0); GRAN # 3.2 K/mm3 (1.4-6.5); GRAN % 63.9 % (42.2-75.2); LYMPH # 1.2 K/mm3 (1.2-3.4); LYMPH % 23.2 % (20.0-51.0); MEAN CELL VOLUME 90 fl (80.0-100.0); MEAN CORPUSCULAR HGB CONC 35 g/dl (33.0-37.0); MEAN PLATELET VOLUME 9.8 fl (7.4-10.4); MONO # 0.5 K/mm3 (0.1-0.6); MONO % 10.5 % (1.7-9.3); PLATELET COUNT 237 K/mm3 (130-400); RED BLOOD COUNT 2.25 M/mm3 (4.10-5.30); REDCELL DISTRIBUTION WIDTH-CV 15.1 % (11.5-14.5)
[2024-06-04 05:56] LABS: CALCIUM 8.2 mg/dL (8.4-10.2); CREATININE, serum 0.57 mg/dL (0.57-1.11); HEMATOCRIT 20.3 % (37.0-47.0); HEMOGLOBIN 7.1 g/dl (12.5-16.0); MEAN CORPUSCULAR HEMOGLOBIN 32 pg (27-31); POTASSIUM 4.1 mEq/L (3.5-4.5)
--- NOTE | 2024-06-04 06:12 | NUR ---
Pt had an uneventful night. Vitals were stable throughout the night. No IVF's or drips running at this time. Pt denies pain throughout the night. Pt is currently resting in bed with call light within reach and bed in low position. Will give report to day shift nurse.
--- NOTE | 2024-06-04 07:00 | NUR ---
Report received from SARA Guajardo. Pt had uneventful night. Pt on covid isolation and precautions. Reviewed labs. Pt resting in bed. Call light within reach.
[2024-06-04 08:00] VITALS: BP 110/64; PULSE 81; TEMP 97.7
[2024-06-04] MEDS ORDERED: DESYREL 100MG100 MG PO (10:22)
[2024-06-04] MEDS ORDERED: REQUIP0.25 MG PO (10:22)
--- NOTE | 2024-06-04 11:19 | NUR ---
medical office worker attended interdisciplinary clinical rounding with Dr. Traore. Patient is medically ready for discharge. SW met with patient, patient's and Dr. Traore to discuss discharge planning. SW reviewed the important message from Medicare with patient and her . No questions or concerns at this time. Patient signed form. SW discussed home health again. Patient decided she did not want home health at this time and wanted use her family support at this time. MARILYN made a copy of IM and placed original in chart. SW provided copy to patient's nurse to add to the discharge paperwork. Discharge plan: Home
--- NOTE | 2024-06-04 12:33 | NUR ---
Discharge instructions provided. Education about follow up appoinment and 1 week BMP lab. Pt verbalized underanding. PICC discontinued by AIVS. Post PICC removal education provided. Pt verbalized understnading. Pt escorted out via wheelchair.
== END 2024-06-04 12:12 | disposition home or self-care (01) | DRG 643 ==
LOC: COL.ER 09:33 → ICU 11:34
PROVIDERS: Internal Medicine Pulmonary Disease; Physician Assistant; ADMIT Internal Medicine
PROC: 02HV33Z Insertion of Infusion Device into Superior Vena Cava, Percutaneous Approach (ICD-10-PCS; principal; 2024-05-30)
PROC: 30233N1 Transfusion of Nonautologous Red Blood Cells into Peripheral Vein, Percutaneous Approach (ICD-10-PCS; 2024-05-30)
DX: E22.2 Syndrome of inappropriate secretion of antidiuretic hormone (principal); U07.1 COVID-19; I10 Essential (primary) hypertension; E11.65 Type 2 diabetes mellitus with hyperglycemia; K21.9 Gastro-esophageal reflux disease without esophagitis; G47.33 Obstructive sleep apnea (adult) (pediatric); E03.9 Hypothyroidism, unspecified; G47.00 Insomnia, unspecified; R35.89 Other polyuria; G43.909 Migraine, unspecified, not intractable, without status migrainosus; E87.6 Hypokalemia; E87.8 Other disorders of electrolyte and fluid balance, not elsewhere classified; D64.9 Anemia, unspecified; Z99.89 Dependence on other enabling machines and devices; Z98.890 Other specified postprocedural states; Z90.710 Acquired absence of both cervix and uterus; Z90.49 Acquired absence of other specified parts of digestive tract; Z79.890 Hormone replacement therapy; Z79.899 Other long term (current) drug therapy; Z88.5 Allergy status to narcotic agent
CPT/HCPCS: C1751; J2405; J2470; J2597; J3475; J3480; J7030; J7131; P9016; Q3014